=== PATIENT | female | born 1960 | race Caucasian/White ===

== ENCOUNTER 2021-08-29 17:14 | Inpatient (IN) | payer OTHER ==
[~2021-08-29] VITALS: Ht 170.2 cm; Wt 88.9 kg
[2021-08-30 01:35] VITALS: BP 153/87
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
[2021-08-30 07:08] LABS: CHOLESTEROL 140 mg/dL (<200); HDL CHOLESTEROL 46 mg/dL (>40); LDL CHOLESTEROL 76 mg/dL (<100); TRIGLYCERIDE 90 mg/dL (<150); VLDL 18 mg/dL (<40)
[2021-08-30 08:19] LABS: CALCIUM 8.5 mg/dL (8.5-10.1); CREATININE 0.6 mg/dL (0.6-1.0)
[2021-08-30 09:33] VITALS: BP 121/74
--- NOTE | 2021-08-30 10:18 | NUR ---
Admit to [facility] with psychosis, hx bipolar. Healthy BMI 25, ate 100% of first meal, lipids wnl. B12 is 348 so suggest supplementation. Otherwise low nutrition risk
--- NOTE | 2021-08-30 11:23 | NUR ---
PATIENT CARE ASSUMED AT 0700, PATIENT STILL IN BED SLEEPING, GOT HER UP FOR ASSESMENT, PATIENT IS ALERT AND ORIENTED X4, SHE REFUSED TO COME OUT FOR GROUP OR PATICIPATE IN ANYTHING, PATIENT STATED THAT "SHE JUST WANT TO BE LEFT ALONG TO SLEEP", SHE WAS PLEASANT WITH ASSESSMENT, LUNGS CLEAR, BOWEL SOUND ACTIVE WITH SOFT AND ROUNDED ABDOMEN, SHE IS ABLE TO AMBULATE WITHOUT ANY DEVICE, PATIENT HAS EDEMA ON HER LEFT LEG, SHE TOOK HER MEDICATION WHOLE, DENIES SI/HI, VSS. WILL CONTINUE TO MONITOR PATIENT FOR SAFETY AND BEHAVIOR.
--- NOTE | 2021-08-30 16:52 | NUR ---
BERTO and Dr. Henderson met with the Pt. PT unabl eto complete assessment. Pt presented manic and irritable. While talking Pt stood up stating " I have to shit". Pt then walked out of the office door and continued to talk. Pt finally shut the door and went to her room.
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
[2021-08-30 18:50] VITALS: BP 103/68
--- NOTE | 2021-08-30 21:33 | NUR ---
PATIENT WITHDRAWN ISOLATING IN HER ROOM. PATIENT IS STILL UPSET ABOUT HAVING TO BE HERE. SHE IS UNCOOPERATIVE AND CHOOSES TO STAY IN HER BED. WHEN SHE DOES CONVERSE HER SPEECH BECOMES LOUDER SHE TALKS. SHE DENIES PAIN OR NEEDS. CONTINUES TO STATE THAT WE ARE EVIL FOR HAVING HER HERE. NO S/S OF DISTRESS NOTED. WILL CONTINUE TO MONITOR.
[2021-08-31 09:15] VITALS: BP 133/90
[2021-08-31 09:16] VITALS: BP 133/90
[2021-08-31 09:17] VITALS: BP 136/94
[2021-08-31 09:57] LABS: URINE BILIRUBIN NEGATIVE (Negative); URINE BLOOD NEGATIVE (Negative); URINE CLARITY CLEAR; URINE COLOR YELLOW; URINE GLUCOSE-RANDOM* NEGATIVE (Negative); URINE KETONES NEGATIVE (Negative); URINE LEUKOCYTES-REFLEX NEGATIVE (Negative); URINE NITRITE-REFLEX NEGATIVE (Negative); URINE PROTEIN (DIPSTICK) NEGATIVE (Negative); URINE SPECIFIC GRAVITY 1.025 (1.005-1.035); URINE UROBILINOGEN 0.2 E.U./dl (0.2-1.0)
--- NOTE | 2021-08-31 14:17 | NUR ---
Alert and orientated X4. Demanding zanax in AM stating she has been on it for 30 years. When asked why she needs zanax she states she wants to be sedated and stay in her room. Later she stated that she needs it for physical symptoms. Discussed with Dr. Haddad in group. Denies SI/HI. Breath sounds clear. Reg HR auscultated. Color pink with brisk capillary refill and palpaple peripheral pulses. Independent with voiding. Active bowel sounds over soft, rounded abdomen. Last BM 08/29. Ambulates with regular, steady gait. 1415 States she would like Tylenol for lower back pain 08/26. Participating in group and ambulating without s/o distress. States she has mass in lower back "just like the one her son has in his lower back". Tylenol given.
[2021-08-31 19:24] VITALS: BP 142/90
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
--- NOTE | 2021-08-31 23:23 | NUR ---
PATIENT MORE PLEASANT AND COOPERATIVE TONIGHT. STATES THAT SHE WANTS TO DO WHAT SHE NEEDS TO SO SHE CAN GO HOME. SHE TOOK HER MEDICATIONS TONIGHT. SHE DID COME OUT OF HER ROOM AND SIT IN THE COMMON AREA FOR A BIT TONIGHT. SHE IS AAOX3. DENIES PAIN OR NEEDS. WILL CONTINUE TO MONITOR FOR CHANGES IN STATUS.
[2021-09-01 07:30] VITALS: BP 135/89
--- NOTE | 2021-09-01 12:00 | NUR ---
Alert and orientated X4. Denies SI/HI. Wants to stay in bed this AM and sleep but agrees to go to group. Up ambulating without s/o distress, regular, steady gait. Breath sounds clear. Reg HR auscultated. Color pink with brisk capillary refill and palpable peripheral pulses. No edema. Independent with voiding. Active bowel sounds over soft, rounded abdomen. Participated in group.
[2021-09-01 13:20] VITALS: BP 138/99
[2021-09-01 19:30] VITALS: BP 165/99
--- NOTE | 2021-09-01 21:31 | NUR ---
ASSUMED CARE ON 09/01/21 @ 1900, IN HER ROOM SECONDARY TO COVID19 PCR (+) RESULTS. AFEBRILE, DENIES SHORTNESS OF BREATH, EVEN WHEN AMBLATING TO TOILET, PAIN IN HER FEET, LEGS, BACK WELL HEAD. TYLENOL PROVIDED FOR PAIN RELIEF. COOPERATIVE WITH CARE AND ISOLATION. WILL CONTINUE TO MONITOR PER [facility] UNIT PROTOCOL FOR SAFETY AND COMFORT.
[2021-09-02 10:08] VITALS: BP 130/87
[2021-09-02 10:18] VITALS: BP 130/87
--- NOTE | 2021-09-02 17:26 | NUR ---
Devi was alert and oriented x4 throughout the shift. She remains on contact and droplet precautions for positive covid test yesterday, 09/01/21. Per an RN that was here yesterday, pt was to be retested today but there was not an order in the computer. The other RN placed the order this afternoon, therefore pt was tested this afternoon and results have not yet resulted. Pt had c/o 10/10 anxiety (10 being the worst) and was given ativan PO PRN per pt request at 0905 and 1655 with effectiveness. Pt also voiced c/o generalized pain (worse in her legs and bag), that was relieved with tylenol PRN. Pt denied feelings of depression and denied SI/HI/MCCALL. Pt denied symptoms of COVID but did appear fatigued and pt stated "I need to rest, it's been a while since I've rested". Pt was medication and meal compliant, and had a good appetite. Will continue to monitor.
[2021-09-02 20:00] VITALS: BP 142/93
--- NOTE | 2021-09-03 03:53 | NUR ---
PATIENT IS IN ISOLATION D/T A POSITIVE COVID PCR FROM 09/01/21 WHICH ALSO NOTED A NEGATIVE RESULT AT SAME TIME A DATE POSITIVE. COVID PCR RAN TODAY WAS NEGATIVE. WILL RUN ANOTHER ONE THIS MORNING TO RULE OUT BEFORE STOPPING ISOLATION. PATIENT HAS BEEN IN ROOM ALL NIGHT. SHE IS A/0X4. SHE IS ANXIOUS AND RESTLESS AND WAS REQUESTING ATIVAN AND TYLENOL BEFORE IT WAS DUE. SHE STATES SHE NEEDS HELP WITH SLEEP AND WAS USED TO TAKING XANAX AT LEAST TID AT HOME. CALLED AND RECIEVED ORDER FROM DR WELLINGTON TO GO AHEAD AND GIVE ATIVAN 1MG PO ONETIME EVEN THOUGH SHE HAD .5MG GIVEN TO HER 5HOURS EARLIER AND SHE WAS TO WAIT 8 HOURS. PATIENT STATES SHE HAS TREMORS AND RESTLESS LEG AND BACK ACHES. TOO EARLY TO GIVE TYLENOL SO JUST HAD TO MAKE COMFORTABLE. PATIENT WAS ABLE TO RELAX AND FALL BACK TO SLEEP AFTER TAKING THE ATIVAN 1MG. PT TOOK MEDS WHOLE WITH WATER. SHE DENIES SI/HI/AVH. ROUTINE ROUNDS WITH CONTACT ISOLATION RULES IN AFFECT. CONTINUING TO MONITOR.
--- NOTE | 2021-09-03 07:27 | EKG ---
[address] [address] ELECTROCARDIOGRAM REPORT Name: PAVAN THAO Room #: 52- ADM IN M.R.#: [id number] Admission: 08/29/21 Attend Phys: Dank Haddad DO Discharge: Date of : 62 Report #: [id number] [facility] Test Date: 2021-08-31 Test Time: 16:35:30 Pat Name: PAVAN THAO Department: Room: [facility] Gender: F Environmental Services Tech: RUBIO : 1960 Requested By: Dank Haddad Order Number: [id number] MD: Chau Bowers Measurements Intervals [place] Rate: 82 P: 45 SD: 154 QRS: 30 QRSD: 82 T: 38 QT: 374 QTc: 437 Interpretive Statements Sinus rhythm Abnormal R-wave progression, early transition Baseline wander in lead(s) V4 No previous ECG available for comparison Electronically Signed On 09-03-2021 7:27:07 CDT by Chau Bowers [email or web address] <ELECTRONICALLY SIGNED> By: Chau Bowers MD, [facility] 09/03/21 0727 34 34 Chau Bowers MD, FACC /EPI
[2021-09-03 09:09] VITALS: BP 89/62
[2021-09-03 11:35] VITALS: BP 112/70
--- NOTE | 2021-09-03 14:44 | NUR ---
Pt was alert and oriented x4 throughout the day. She started the shift off on contact/droplet precautions due to a positive COVID test on 09/01. Pt's isolation precautions were D/C'd this morning after a negative test yesterday afternoon. Pt's test from this morning also came back negative. Pt was isolated to her room throughout the day until this arfternoon around 1450, pt came to the nurses station asking for immodium and ativan PRN. Pt stated that she has had diarrhea "since I got here, because of my IBS". Order received per Dr. Haddad for immodium PRN. Pt initially denied symptoms of anxiety and pain this morning but at administration of tylenol and ativan pt rated her pain 10/10 and anxiety 10/10; 10 being the worst. Pt was encouraged at that time to stay out of her room and participate in group, which pt did go ahead and join group. Pt was medication and meal compliant, taking pills whole without difficulty. She did not c/o other physical symptoms besides pain this shift and did not appear in distress throughout the day. She denied SI/HI/MCCALL and denied feelings of paranoia. Will continue to monitor.
[2021-09-03 19:08] VITALS: BP 112/85
[2021-09-03 20:10] VITALS: BP 112/85
--- NOTE | 2021-09-04 01:18 | NUR ---
PATIENT HAS BEEN UP IN DINING ROOM BEFORE GOING TO BED TONIGHT. SHE WAS WATCHING TV WHEN SHE MOVED HER RIGHT LEG WRONG AND CAUSED HER KNEE TO POP. TYLENOL 650MG PO GIVEN FOR THIS. SHE HAS BEEN SMILING AND CALM AND COOPERATIVE AND PLEASANT. SHE IS EXCITED ABOUT GOING HOME ON FRIDAY, THE . PT TOOK HER MEDS WHOLE WITH WATER. SHE HAD THE TYLENOL 650MG AND ATIVAN .5MG AT 2300. SHE IS INDEPENDENT WITH CARES. SHE DENIES SI/HI/AVH. SHE IS LESS IRRITABLE TONIGHT THAN SHE WAS LAST NIGHT. CONTINUING TO MONITOR.
[2021-09-04 09:23] VITALS: BP 137/87
[2021-09-04 10:07] VITALS: BP 137/87
--- NOTE | 2021-09-04 12:24 | NUR ---
Assumed care from overnight shift this am. Client was in room resting on bed. Client stated that she was ready to leave facility, and stated that she was going to remain in bed all day despite being off of isolation precautions. Client was encouraged to go to groups and interact with staff, but declined, stating that she disliked people, and preferred to stay in her room. Client stated that she didn't feel the need to attend groups as she would be leaving tomorrow. Client stated that she had a headache, and neck pain, and stated that this was another reason she didn't want to go to groups. Client denied any depression and stated that she did have anxiety at this time, requesting her prn ativan for her anxiety, stating that this was the only thing helping. When asked about hallucinations, client stated that she heard audio hallucinations, but did not see visual. Client presented A&O x 4 during this time. Lung sounds present with slight distortion but no shortness of breat noted. Bowel sounds normal. No concerns presented by client at this time. Will continue to monitor for pt safety and concerns.
--- NOTE | 2021-09-04 17:32 | NUR ---
09/04/[address] Henderson met with the Pt concerning discharge. Pt stated she would be going to live with her son. Pt reported she got put out of her home. Pt stated she was in agreement to participating in otpt mental health services. BERTO informed Pt about [facility] and the services provided. Dr. Henderson informed Pt about need to follow up with her PCP concerning the xanax perscription. Pt report seeing Dr. Bebo Bergeron at [facility]. Pt has no other questions or concerns at this time
--- NOTE | 2021-09-04 17:58 | NUR ---
BERTO contacted Pt's son, Glenn, concerning discharge. BERTO informed that the Pt would need to follow up with [facility] and her PCP. Glenn expressed concerns that the Pt may not still be well. Also the Pt knows what to say to leave the hospital. BERTO educated Glenn about mental illness and medication management. BERTO stressed the importance of follow up services for the Pt. Glenn stated he would be able to pick the Pt up at 1300 on 09/05/2021. Pt will need to walk into [facility] anytime M-F 8:30am -1:30pm. Pt has a PCP appointment at [facility] on 09/10/2021 @ 11:20 am. This information was told to the Pt verbally and put in the discharge documents.
[2021-09-04 19:39] VITALS: BP 136/88
--- NOTE | 2021-09-04 23:20 | NUR ---
At onset of penology professor pt was resting in bed awake. This shift pt was alert and oriented to self and date. Pt stated she was in [place] and knows she is near [facility]. Pt's insight into situation is limited. Pt was compliant with medication and vital signs. Pt was overall calm, pleasant and cooperative. Pt complained of anxiety and requested Ativan but it was too soon to administer. Pt talked about how she is leaving tomorrow and is excited. Pt stated she gets her money tomorrow and is going to buy snacks and cigarettes.
[2021-09-05 10:53] VITALS: BP 96/65
[2021-09-05] MEDS ORDERED: NICOTINE1 EACH TRANSDERM (12:21)
[2021-09-05] MEDS ORDERED: HALOPERIDOL 5 MG5 MG PO (12:22)
[2021-09-05] MEDS ORDERED: LISINOPRIL20 MG PO (12:22)
[2021-09-05] MEDS ORDERED: B-12500 MCG PO (12:23)
[2021-09-05] MEDS ORDERED: PEPCID20 MG PO (12:23)
[2021-09-05 13:09] VITALS: BP 96/65
--- NOTE | 2021-09-05 14:37 | NUR ---
PATIENT HAS BEEN ISOLATING SELF TO ROOM, MEALS OFFERED IN ROOM. MEDICATIONS GIVEN AT BEDSIDE, WELL TOLERATED. LCTA, RESP EVEN/UNLABORED, NO SOA/CYANOSIS NOTED, BS+X4, ABD SOFT, NON-TENDER TO TOUCH. PATIENT DENIES SUICIDAL/HOMICIDAL IDEATION, SHE DENIES DEPRESSION/ANXIETY. PRN TYLENOL 650MG GIVEN AT 1152HRS FOR ANÍBAL LEG PAIN OF 8/10. WHEN REASSESSD, PAIN DECREASED TO 0/10. AFFECT IS FLAT, CALM, POOR EYE CONTACT. MOOD IS EUTHYMIC. AFFECT IMPROVED AFTER PRN ATIVAN GIVEN TO HER PER HER AT 1429HRS PER HER REQUEST. PATIENT IS DISCHARGING HOME TODAY, DISCHARGE INSTRUCTIONS, AND MEDICATION LIST REVIEWED WITH PATIENT, SHE VERBALIZES UNDERSTANDING, AND SIGNED ALL DISCHARGE PAPERWORK. PATIENT DECLINES GROUP THERAPY, NO SIGN OF ACUTE DISTRESS NOTED, WILL MONITOR FOR SAFETY.
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
== END 2021-09-05 15:45 | disposition home or self-care (01) | DRG 885 ==
LOC: SBH 17:14
PROVIDERS: Internal Medicine; Nurse Practitioner; ADMIT Psychiatry & Neurology Psychiatry; ATTEND Psychiatry & Neurology Psychiatry
DX: F31.2 Bipolar disorder, current episode manic severe with psychotic features (principal); I11.0 Hypertensive heart disease with heart failure; F41.9 Anxiety disorder, unspecified; E03.9 Hypothyroidism, unspecified; I10 Essential (primary) hypertension; I50.9 Heart failure, unspecified; G89.29 Other chronic pain; M54.9 Dorsalgia, unspecified; M10.9 Gout, unspecified; Z60.2 Problems related to living alone; M51.36 Other intervertebral disc degeneration, lumbar region; Z20.822 Contact with and (suspected) exposure to COVID-19; Z88.0 Allergy status to penicillin; Z88.8 Allergy status to other drugs, medicaments and biological substances; Z86.19 Personal history of other infectious and parasitic diseases; Z85.850 Personal history of malignant neoplasm of thyroid; Z79.899 Other long term (current) drug therapy; Z28.21 Immunization not carried out because of patient refusal
CPT/HCPCS: 10880

== ENCOUNTER 2021-09-18 17:20 | Inpatient (IN) | payer OTHER ==
[~2021-09-18] VITALS: Ht 170.2 cm; Wt 89.4 kg
[~2021-09-18 17:20] MED LIST: B-12500 MCG PO; HALOPERIDOL 5 MG5 MG PO; LISINOPRIL20 MG PO; NICOTINE1 EACH TRANSDERM; PEPCID20 MG PO
[2021-09-18 23:35] VITALS: BP 141/101
--- NOTE | 2021-09-19 03:10 | NUR ---
RECEIVED REPORT FROM ED RN TATA. 09-18-21 PT ARRIVED ON UNIT 2335. PT AAOX4, B/P 141/101, P 107, R 18, T 98.1, 02 SAT 96% RA RR EVEN AND NONLABORED. PT PRESENTED UNTIDY, HYPERVERBAL WITH DISORGANIZED THOUGHTS; PT HAS BEEN COOPERATIVE THROUGHOUT NURSING ASSESSMENT, PT REFUSING FULL SKIN ASSESSMENT. PT HAS HX CHF, HTN, ALLGERIC RHINITIS, BLADDER SPASMS, CHRONIC BACK PAIN, CHRONIC USE OF OPIOIDS, CLASS 1 OBSIETY, IBS, OA HIP, ANXIETY/DEPRESSION, BIPOLAR WITH PSYCHOTIC FEATURES. HCP Kaleb MCELROY NP FOR CONSULT. HCP Augustine MCKEON NP CONSULTED, ORDERS RECEIVED AND ADMIN. PT WILL CONTINUE TO BE MONITOR PER [facility] PROTOCOL.
[2021-09-19 08:14] LABS: CHOLESTEROL 200 mg/dL (<200); HDL CHOLESTEROL 47 mg/dL (>40); LDL CHOLESTEROL 124 mg/dL (<100); TC:HDL 4.3 Ratio (Not establshd); TRIGLYCERIDE 147 mg/dL (<150); VLDL 29 mg/dL (<40)
[2021-09-19 08:17] LABS: SERUM ASSESSMENT Clear
[2021-09-19] MEDS ORDERED: PRINIVIL20 MG PO (08:40)
[2021-09-19] MEDS ORDERED: OXYBUTYNIN 5 MG5 M2 PO (08:41)
[2021-09-19 11:04] VITALS: BP 133/79
--- NOTE | 2021-09-19 12:06 | NUR ---
Nutrition: Pt admitted to [facility] with bipolar dx and psychotic features. Was here recently and ate well that admit. New admit, no records yet. Stable weights recently. Cholesterol 200, LDL 124. On Heart healthy diet. Noted B12 348 borderline low last month. Consider B12 supplementation. Consider low nutrition risk, follow intake trends.
--- NOTE | 2021-09-19 14:49 | NUR ---
PATIENT WAS IN BED ASLEEP WHEN CARE ASSUMED. MORNING MEDICATION GIVEN AT BED SIDE, WELL TOLERATED. BREAKFAST SERVED IN ROOM PATIENT CHOOSE NOT TO GET UP FOR BREAKFAST, STATES SHE IS VERY TIRED. PATIENT DID GET UP IN A W/C FOR LUNCH, CONSUMED 100%, REQUESTED TO GO BACK TO BED, DR. WELLINGTON GAVE PERMISSION TO LET HER GO BACK TO BED FOR TODAY, SHE IS HAS ROOM LOCK-OUT ORDER. PATIENT DENIES SUICIDAL/HOMICIDAL IDEATION, RATES ANÍBAL LEG PAIN 10/10, PRN TYLENOL GIVEN WITH POSITIVE EFFECT, PAIN DECREASED TO 2/10 UPON REASSESSMENT. AFFECT IS LABILE, MOOD IS EUTHYMIC. PICTURE TAKEN, AND PLACED IN THE CHART. NO AGITATION OR AGGRESSIVE BEHAVIOR NOTED AT THIS TIME. PATIENT CURRENTLY IN BED RESTING, WILL MONITOR FOR SAFETY.
--- NOTE | 2021-09-19 16:14 | NUR ---
BERTO and Dr. Haddad attempted to meet with the Pt. Pt appeared upset and refusing to talk. Pt got in her bed and pulled the cover over her face. BERTO and Dr. Haddad left the Pt's room
[2021-09-19 19:20] VITALS: BP 118/71
[2021-09-20 01:06] LABS: GLYCOHEMOGLOBIN (HGB A1C) 5.2 % (4.8-5.6)
--- NOTE | 2021-09-20 04:32 | NUR ---
09-19-21 CARE TRANSFERRED 1899 OBSERVED PT WALKING IN HALLWAY. LATER PT AAOX4, VSS, RR EVEN AND NONLABORED ON RA. PT DENIES SI/HI. PT REPORTS HAVING PAIN IN BLE AND REQUEST SOMETHING FOR PAIN, PT WAS EDUCATION THAT TYLENOL WAS GIVEN ACOUPLE OF HOURS EARLIER, PT ACKNOWLEDGE THIS. PT REMAINED CALM AND COOPERATIVE. DURING MEDICATION ADMIN PT HAD NO DIFFICULTIES, BUT BECAME SARCASTIC AND IRRITABLE OVER NOTING GETTING HER XANAX. PT HAS APPROACHED THIS INSPECTOR MATERIALS AND PROCESSES SEVERAL OCCASIONS AT DIFFERENT ANGLES WANTING MEDICATION. PT REPORTED SHE CAN FEEL HER BLOOD PRESSURE IS HIGH, B/P 128/88, L. ARM SITTING, HT RR, SKIN W/D, NO S/S OF CARDIC OR WITHDRAWAL NOTED. PT BED WAS ADJUSTED FOR COMFORT. PT WILL CONTINUE TO BE MONITOR PER [facility] PROTOCOL.
[2021-09-20 15:05] VITALS: BP 137/88
[2021-09-20 15:06] VITALS: BP 137/88
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
[2021-09-20 19:53] VITALS: BP 118/76
--- NOTE | 2021-09-20 22:35 | NUR ---
Assumed care on 09/20/21 @ 1900, in room in bed Awake, alert oriented x4 with confusion and flight of ideas noted. Talks about weakness and falls on both hips. Observed ambulating to the toilet, however states that she cannot go to the bathroom because she cannot walk. Encouraged to use a walker to ambulate, which she was willing to do once propted. VSS, HRRR, Lungs CTA bilat, ABD N x 4Q, reports she is hungry and did ot eat lunch, but did have a good dinner, enocuraged to go to the day room for snacks and she did. Tylenol provided for hip pain 04/26.
[2021-09-21 10:21] VITALS: BP 119/82
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
[2021-09-21 20:29] VITALS: BP 92/52
--- NOTE | 2021-09-21 22:46 | NUR ---
At onset of shift supervisor film processing pt was sitting in her room awake. This shift pt was alert and oriented x3. Pt does not appear to be oriented to situation. Pt is able to walk out of her room independently but made comments about her legs not working correctly and not being able to walk. Pt made a comment stating she needs xanax. Pt endorsed anxiety. Pt denied SI and HI. Pt stated her son is taking care of her apartment and belongings while she is here. Pt stated she can leave when she is ready and return to her apartment. Pt's speech was tangential and hyperverbal. Pt was compliant with vital signs and medications. Pt was not observed socializing with peers, but did comment that she wants to tell her peers what they need to do to be discharged. RN encouraged pt to focus on her own care plan and not interfer with peers. Pt's affect was broad and pt smiled while speaking with RN. Will continue to monitor.
[2021-09-22 10:15] VITALS: BP 114/69
--- NOTE | 2021-09-22 10:24 | NUR ---
Assumed care at 0700, patient in bed sleeping, got up for breakfast, alert and oriented x3, patient complained of not getting enough sleep and will like to skip morning group, patient encouraged to attend group and remainded of being in room lock out, assessment completed, active bowel sound with soft abdomen skin intact, no edema noted, clear lungs, patient is calm, pleasant and cooperative with care, took medication whole, denies SI/HI. patient is able to verbalize needs. will continue to monitor for safety.
[2021-09-22 19:23] VITALS: BP 130/90
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
--- NOTE | 2021-09-22 21:57 | NUR ---
At onset of shift pt was sitting in her room awake. This shift pt stated she felt tired and wanted to sleep. Pt stated she had a good day and "slept and ate." Pt stated she is going to leave on Friday and is looking forward to discharging. Pt stated she feels like she is in half-way. Pt denied SI, HI and AVH. Pt was compliant with medication and vital signs.
[2021-09-23 06:54] VITALS: BP 100/70
--- NOTE | 2021-09-23 11:33 | NUR ---
CARE ASSUMED aT 0700, PATINET IN BED AWAKE, ALERT AND ORIWNTED X3, CALM AND PLEASANT WITH CARE, ATE BREAKAST AND TOOK MEDICATION WHOLE, ABLE TO VERBALIZE NEEDS, BREATH SOUND CLEAR, ACTIVE BOWEL SOUND WITH SOFT ABDOMEN, SKIN INTACT, NO EDEMA NOTED, PATIENT SAID "SHE IS LOOKING FORWARD TO BEING DISCHARGE TOMORROW", PATIENT DENIES SI/HI, NO BEHAVIOR CHANGE, WILL CONTINUE TO MONITOR PATIENT FOR SAFETY.
[2021-09-23 19:30] VITALS: BP 121/76
[2021-09-23 20:12] VITALS: BP 121/76
--- NOTE | 2021-09-24 02:51 | NUR ---
PATIENT CARE WAS RESUMED AT 1900. SHE IS ALERT AND OREINTED. ABLE TO VERABLISE SOME NEEDS. LUNGS ARE CLEAR BS ACTIVE X4 QUADS. SHE AMBULATES AND TOOK HER MEDS WHOLE. SHE IS ABLE TO VERBALIZE HER NEEDS. SHE DENIES SI/AVH/HI. SHE IS CONTINENT OF BOWEL AND BLADDER. LUNGS ARE CLEAR BS ACTIVE X4 QUADS. BED IS LOW AND LOCKED
--- NOTE | 2021-09-24 07:26 | NUR ---
09-23-2021--Attempted call to number provided by [facility] and I got a recoreding of documents they wanted faxed. I left a message that a bed needed to be held for a patient who is DC'ing at 1300. Attempted all day to fax information with no response. 09-24-2021--729--Attempted call to RN at [facility] again this AM. Also attempted to fax information needed for patient to have a bed tonight. Fax stated "No Response" again. Left a message for the RN with the time of discharge and asking for a bed to be saved for patient tonight. Will attempt call and fax after 8:00 AM.
--- NOTE | 2021-09-24 08:10 | NUR ---
09-24-2021--08--Call returned from Natalie GARNER at [facility]. She states the women's facility is run differently. She stated after she reviewed the fax and cleared her she would call me back with an address.
--- NOTE | 2021-09-24 08:12 | NUR ---
09-24-2021--0815--Information refaxed to Natalie at [facility].
--- NOTE | 2021-09-24 09:28 | NUR ---
09-24-2021--1015--Call returned by Natalie (RN) from the [facility]. She stated patient was medically cleared to go to the [facility] if they have a bed. Number given for [facility] ([phone]) and the address is [address] [place] [address]. I called the hotline to reserve the bed. They had only one bed left and they are reserving it for her. Worker stated they do the intakes between 1 and 3 and if she was going to be late she should call them and let them know or they will give the bed to someone else. I advised them I would give her the instructions.
[2021-09-24 09:54] VITALS: BP 106/63
[2021-09-24] MEDS ORDERED: LIPITOR 20 MG T20 M1 PO (12:18)
[2021-09-24] MEDS ORDERED: LISINOPRIL20 MG PO (12:18)
[2021-09-24] MEDS ORDERED: ZYPREXA15 MG PO (12:20)
[2021-09-24] MEDS ORDERED: ZYPREXA 5 MG TAB5 M1 PO (12:21)
[2021-09-24] MEDS ORDERED: OXYBUTYNIN 5 MG5 M1 PO (12:22)
[2021-09-24] MEDS ORDERED: COLACE 100 MG100 MG PO (12:22)
[2021-09-24] MEDS ORDERED: FOLIC ACID1 MG PO (12:23)
[2021-09-24] MEDS ORDERED: NICODERM CQ1 EAC2 TRANSDERM (12:37)
[2021-09-24 12:51] VITALS: BP 106/63
--- NOTE | 2021-09-24 14:18 | NUR ---
Assumed pt care at 0700. Pt was alert and oriented x4. Assessments completed, vss. Lungs clear, active bowel sound. Denies si/hi, Denies pain. Took meds whole, no difficulty noted, ambulates with a steady gait. No sign of acute distress noted upon assessments. Calm and cooperative with care. 1408 pt was d/c to [facility] with her purple hand bag and belongings. Pt was transported by [facility]. Pt Prescription was picked up at the out patient Pharmacy. Pt was d/c with d/c instrution packet.
--- NOTE | 2021-09-25 22:58 | D ---
[facility] [address] [place] [address] DISCHARGE SUMMARY Name: PAVAN THAO Room #: 519B-B [facility] IN M.R.#: [id number] Admission: 09/18/21 Attend Phys: Dank Haddad DO Discharge: 09/24/21 Date of : 62 Report #: [id number] THIS REPORT FOR: cc: FAM - Family physician unknown FAM - Family physician unknown Dank Haddad DO ~ DATE OF SERVICE: 09/24/2021 INPATIENT PSYCHIATRIC DISCHARGE SUMMARY ATTENDING PSYCHIATRIST: Dank Haddad DO ENVELOPE SEALER: Leandro Mclean M.D. DISCHARGE DIAGNOSES: Bipolar 1 disorder, most recent episode manic with psychotic features, improved. ADDITIONAL DIAGNOSES: Substance use disorder for benzodiazepines and opiates at least moderate degree. Tobacco dependence. Medical comorbidities include mild obesity, hypertension, hyperlipidemia, vitamin D, folate deficiency, history of thyroid cancer, status post partial thyroidectomy, gout, chronic back pain, degenerative disk disease. The patient is discharging to [facility] in [place], [place]. AFTERCARE: Is as follows. I believe her goal is to reestablish mental health care with [facility], but while she is living in downtown [place], [place], probably, [place] is better place to establish. The patient is encouraged to see her primary care physician within 1 month. DISCHARGE MEDICATIONS: Include famotidine 20 mg oral daily for GERD, vitamin B12 500 mcg oral daily for supplementation. Scripts were given 30 days for atorvastatin 20 mg oral at bedtime for hyperlipidemia, lisinopril 20 mg oral daily for hypertension, olanzapine 15 mg oral at bedtime for mood stabilization, olanzapine 5 mg oral at 0900 for mood stabilization, docusate 100 mg oral twice daily, hold if diarrhea and bowel motility, oxybutynin 5 mg oral twice daily for overactive bladder, folate 1 mg oral daily for supplementation. Smoking cessation is encouraged. Nicoderm prescription to pharmacy. No alcohol, no illicit drugs. Crisis suicide hotline information was given to the patient. LABORATORY DATA: Significant laboratories on this admission were COVID-19 serology not detected on 09/23/2021 as well as 09/21/2021 and 09/18/2021 by PCR. REASON FOR ADMISSION: Back on 09/18/2021, a 61 year old female who was discharged from [facility] in August. She was transferred from [facility] voluntarily after admission for altered mental status and psychosis. [facility] [address] [place] [address] DISCHARGE SUMMARY Name: PAVAN THAO Room #: 519B-B [facility] IN [facility]#: [id number] Admission: 09/18/21 Attend Phys: Dank Haddad, Discharge: 09/24/21 Date of : 62 Report #: [id number] HOSPITAL COURSE: The patient was admitted to Geriatric Psychiatry Unit. It become clear that the patient had quickly relapsed and used multiple substances following her previous discharge from this unit. Continue the patient on olanzapine. The patient wanted to stay with her son and her son was not responsive when we contacted during this admission. Ideally, The patient would best benefit from residential treatment for chemical dependency; however, the patient still is what I would call in precontemplation phase, risk of harm, overdose, and she was counseled and continues to use multiple substances. I discussed her florence relatively improved last admission and reappeared earlier on in this admission She feigned being disabled, not being able to move, and in extreme pain during this admission . The patient is able to ambulate randomly at other times, so this was believed to be fabricated. PHYSICAL EXAMINATION: VITAL SIGNS: On day of discharge, temperature 36.6, pulse 81, respirations 18, BP 106/63. MUSCULOSKELETAL: Normal gait and station. MENTAL STATUS EXAMINATION: Well-developed, unkempt female, poor dentition, intention fair. Concentration limited. Speech: Increased rate. Thought process: Linear and goal directed. Thought content, focused on being upset at her son who was not picking her up. Denied SI, HI. Denied auditory or visual type hallucinations. Mood and affect was congruent, irritable. Memory not formally tested. Insight and judgment limited. Fund of knowledge below average. PROGNOSIS: For this patient is guarded given homelessness, poor compliance, prone to relapse, poor social support. ACTIVITY LEVEL: As tolerated. Advised against driving. DIET: Regular. no Alcoho, no Benzodiazepines, No smoking <ELECTRONICALLY SIGNED> By: Dank Haddad DO 09/25/21 2258 [id number] Dank Haddad DO /nt
== END 2021-09-24 14:00 | DRG 885 ==
LOC: SBH
PROVIDERS: ADMIT Psychiatry & Neurology Psychiatry; ATTEND Psychiatry & Neurology Psychiatry
DX: F31.2 Bipolar disorder, current episode manic severe with psychotic features (principal); I11.0 Hypertensive heart disease with heart failure; M10.9 Gout, unspecified; E89.0 Postprocedural hypothyroidism; G89.29 Other chronic pain; E66.9 Obesity, unspecified; I50.9 Heart failure, unspecified; M19.90 Unspecified osteoarthritis, unspecified site; F41.9 Anxiety disorder, unspecified; E53.9 Vitamin B deficiency, unspecified; E53.8 Deficiency of other specified B group vitamins; M51.36 Other intervertebral disc degeneration, lumbar region; M54.50 Low back pain, unspecified; F19.90 Other psychoactive substance use, unspecified, uncomplicated; Z20.822 Contact with and (suspected) exposure to COVID-19; Z85.850 Personal history of malignant neoplasm of thyroid; Z88.0 Allergy status to penicillin; Z88.8 Allergy status to other drugs, medicaments and biological substances; Z86.14 Personal history of Methicillin resistant Staphylococcus aureus infection; Z68.30 Body mass index [BMI] 30.0-30.9, adult
CPT/HCPCS: 10880

== ENCOUNTER 2021-09-18 18:11 | Emergency (ER) | payer OTHER ==
[2021-09-18 23:28] VITALS: BP 142/77
[2021-09-19] MEDS ORDERED: PRINIVIL20 MG PO (08:40)
[2021-09-19] MEDS ORDERED: OXYBUTYNIN 5 MG5 M2 PO (08:41)
== END 2021-09-18 23:31 ==
LOC: ER 18:11
PROVIDERS: Emergency Medicine
DX: F91.9 Conduct disorder, unspecified (principal); Z20.822 Contact with and (suspected) exposure to COVID-19; F31.9 Bipolar disorder, unspecified; F41.9 Anxiety disorder, unspecified; E03.9 Hypothyroidism, unspecified; I11.0 Hypertensive heart disease with heart failure; I50.9 Heart failure, unspecified; M10.9 Gout, unspecified; K75.89 Other specified inflammatory liver diseases; Z98.890 Other specified postprocedural states; Z79.891 Long term (current) use of opiate analgesic; Z79.899 Other long term (current) drug therapy; Z88.6 Allergy status to analgesic agent; Z88.5 Allergy status to narcotic agent; Z88.0 Allergy status to penicillin; Z88.8 Allergy status to other drugs, medicaments and biological substances